=== PATIENT | female | born 1990 | race Caucasian/White ===

== ENCOUNTER 2017-06-29 18:04 | Emergency (ER) | payer SELFPAY ==
[~2017-06-29] VITALS: Ht 157.5 cm; Wt 52.2 kg
[2017-06-29 18:19] VITALS: BP 142/92; PULSE 117; RESP 22; TEMP 99.1; O2SAT 100
[2017-06-29 18:22] VITALS: BP 142/92; PULSE 117; RESP 22; TEMP 99.1; O2SAT 100
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
[2017-06-29 18:59] LABS: AUTOMATED NEUTROPHIL # 6.8 TH/MM3 (1.8-7.7); BASOPHIL # 0.1 TH/MM3 (0-0.2); BASOPHIL % 0.7 % (0.0-2.0); EOSINOPHIL % 0.4 % (0.0-4.0); HEMATOCRIT 36.9 % (35.0-46.0); HEMO FLAGS DIFF FINAL; LYMPH % 20.6 % (9.0-44.0); MEAN CELL VOLUME 83.4 FL (80.0-100.0); MEAN CORPUSCULAR HEMOGLOBIN 28.6 PG (27.0-34.0); MEAN CORPUSCULAR HGB CONC 34.3 % (32.0-36.0); MONO % 7.8 % (0.0-8.0); NEUT % 70.5 % (16.0-70.0); PLATELET COUNT 267 TH/MM3 (150-450); RED BLOOD COUNT 4.43 MIL/MM3 (4.00-5.30); RED CELL DISTRIBUTION WIDTH 13.5 % (11.6-17.2); WHITE BLOOD COUNT 9.6 TH/MM3 (4.0-11.0)
[2017-06-29] MEDS ORDERED: HALOPERIDOL LACTATE 5 MG/ML AMP IM ONE (19:00)
[2017-06-29] MEDS ORDERED: LORazepam 2 MG/ML VIAL IV PUSH ONE (19:00)
[2017-06-29 19:11] LABS: AMPHETAMINE, URINE POS (NEG); BARBITURATES, URINE NEG (NEG); COCAINE, URINE POS (NEG)
[2017-06-29 19:19] LABS: ALT (GPT) 552 U/L (10-53); ANION GAP 11 MEQ/L (5-15); AST (GOT) 364 U/L (15-37); BICARBONATE 21.9 MEQ/L (21.0-32.0); BLOOD UREA NITROGEN 11 MG/DL (7-18); CHLORIDE 108 MEQ/L (98-107); GLOMERULAR FILTRATION RATE 64 ML/MIN (>89); POTASSIUM 3.7 MEQ/L (3.5-5.1); SODIUM (NA) 141 MEQ/L (136-145)
[2017-06-29 19:22] LABS: ACETAMINOPHEN 6.5 MCG/ML (10.0-30.0); ALKALINE PHOSPHATASE 100 U/L (45-117); TOTAL BILIRUBIN ADULT 0.5 MG/DL (0.2-1.0)
[2017-06-29 22:07] VITALS: BP 105/61; PULSE 74; RESP 16; O2SAT 97
[2017-06-30 06:17] VITALS: BP 106/58; PULSE 89; RESP 16; O2SAT 97
[2017-06-30 09:59] VITALS: BP 113/60; PULSE 98; RESP 18
[2017-06-30 12:29] VITALS: BP 113/60; TEMP 97.9
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
== END 2017-06-30 12:40 | disposition home or self-care (01) ==
LOC: NEPD 18:04 → NEPJ 06-30 12:40
DX: R45.1 Restlessness and agitation (principal); F19.10 Other psychoactive substance abuse, uncomplicated; F31.9 Bipolar disorder, unspecified; Z88.0 Allergy status to penicillin
CPT/HCPCS: 80053; 80307; 85025; 96372; 96374; 99284; J1630; J2060

== ENCOUNTER 2017-09-11 01:29 | Inpatient (IN) | payer OTHER ==
[~2017-09-11] VITALS: Ht 170.2 cm; Wt 62.1 kg
[2017-09-11 01:42] VITALS: BP 136/103; PULSE 92; RESP 15; TEMP 98.9; O2SAT 98
[2017-09-11] MEDS ORDERED: SODIUM CHLOR 0.9% 1000 ML INJ 1,000 ML IV ONE (02:00)
--- NOTE | 2017-09-11 02:02 | PD ---
HPI Chief Complaint: Alcohol/Drug Intoxication Time Seen by Provider: 01:59 Travel History International Travel<30 days: No Contact w/Intl Traveler<30days: No Traveled to known affect area: No History of Present Illness HPI 26-year-old female presents to the emergency department in police custody for Posada act. Patient was found at a gas station and admitted to heroin use. Patient appeared agitated and unable to care for herself and was brought to the emergency room for evaluation. Patient is not a Morrison act. Patient does not want to harm herself or harm others. Patient has extensive medical illness issues. Patient states she's taken all her medications as prescribed on Saturday. Patient here is not homicidal or suicidal. [facility] Past Medical History Narrative Medical Bipolar disorder, eye surgery; tobacco use alcohol use substance use; nursing notes reviewed Bipolar Disorder: Yes Diminished Hearing: No Past Surgical History Eye Surgery: Yes Social History Alcohol Use: Yes Tobacco Use: Yes (1 PPD) Substance Use: Yes Allergies-Medications (Allergen,Severity, Reaction): Coded Allergies: penicillin G (Unverified Allergy, Unknown, 09/11/17) Reported Meds & Prescriptions Reported Meds & Active Scripts Active Reported Risperdal (Risperidone) 0.25 Mg Tab 0.25 Mg PO DAILY Latuda (Lurasidone) 80 Mg Tab 80 Mg PO DAILY Haloperidol 0.5 Mg Tab Unknown Dose PO BID Ativan (Lorazepam) 0.5 Mg Tab 0.5 Mg PO DAILY PRN Review of Systems Except as stated in HPI: all other systems reviewed are Neg General / Constitutional: No: Fever, Chills HENT: No: Congestion Cardiovascular: No: Chest Pain or Discomfort Respiratory: No: Shortness of Breath Gastrointestinal: No: Abdominal Pain Genitourinary: No: Flank Pain Musculoskeletal: No: Pain Skin: No Rash Neurologic: No: Weakness Psychiatric: Positive: Mood Disorder, Substance Abuse, No: Anxiety Hematologic/Lymphatic: No: Lymph Node Enlargement Physical Exam Narrative GENERAL: Well-developed well-nourished female in no acute distress no respiratory distress GCS 15 SKIN: Warm and dry. HEAD: Normocephalic. EYES: No scleral icterus. No injection or drainage. NECK: Supple, trachea midline. No JVD or lymphadenopathy. CARDIOVASCULAR: Regular rate and rhythm without murmurs, gallops, or rubs. RESPIRATORY: Breath sounds equal bilaterally. No accessory muscle use. GASTROINTESTINAL: Abdomen soft, non-tender, nondistended. MUSCULOSKELETAL: No cyanosis, or edema. BACK: Nontender without obvious deformity. No CVA tenderness. Data Data Last Documented VS Vital Signs Date Time Temp Pulse Resp B/P (MAP) Pulse Ox O2 Delivery O2 Flow Rate FiO2 09/11/17 16:02 98 18 140/68 (92) 97 Room Air 09/11/17 07:45 98.0 Orders Orders Complete Blood Count With Diff (09/11/17 01:59) Comprehensive Metabolic Panel (09/11/17 01:59) Ed Urine Pregnancytest Poc (09/11/17 01:59) Drug Screen, Random Urine (09/11/17 01:59) Alcohol (Ethanol) (09/11/17 01:59) Sodium Chlor 0.9% 1000 Ml Inj (Ns 1000 M (09/11/17 02:00) Psych Screen (09/11/17 04:29) Diet Regular Basic (09/11/17 Breakfast) Diet Regular Basic (09/11/17 Dinner) Haloperidol Inj (Haldol Inj) (09/11/17 16:15) Labs Laboratory Tests Test 09/11/17 02:05 09/11/17 03:40 White Blood Count 9.6 TH/MM3 Red Blood Count 4.48 MIL/MM3 Hemoglobin 12.7 GM/DL Hematocrit 38.2 % Mean Corpuscular Volume 85.2 FL Mean Corpuscular Hemoglobin 28.2 PG Mean Corpuscular Hemoglobin Concent 33.1 % Red Cell Distribution Width 15.2 % Platelet Count 277 TH/MM3 Mean Platelet Volume 8.9 FL Neutrophils (%) (Auto) 53.3 % Lymphocytes (%) (Auto) 35.5 % Monocytes (%) (Auto) 9.1 % Eosinophils (%) (Auto) 1.1 % Basophils (%) (Auto) 1.0 % Neutrophils # (Auto) 5.1 TH/MM3 Lymphocytes # (Auto) 3.4 TH/MM3 Monocytes # (Auto) 0.9 TH/MM3 Eosinophils # (Auto) 0.1 TH/MM3 Basophils # (Auto) 0.1 TH/MM3 CBC Comment DIFF FINAL Differential Comment Blood Urea Nitrogen 15 MG/DL Creatinine 0.99 MG/DL Random Glucose 82 MG/DL Total Protein 7.7 GM/DL Albumin 3.9 GM/DL Calcium Level 9.1 MG/DL Alkaline Phosphatase 55 U/L Aspartate Amino Transf (AST/SGOT) 87 U/L Alanine Aminotransferase (ALT/SGPT) 243 U/L Total Bilirubin 0.2 MG/DL Sodium Level 142 MEQ/L Potassium Level 4.1 MEQ/L Chloride Level 108 MEQ/L Carbon Dioxide Level 27.9 MEQ/L Anion Gap 6 MEQ/L Estimat Glomerular Filtration Rate 69 ML/MIN Ethyl Alcohol Level LESS THAN 3 MG/DL Urine Opiates Screen NEG Urine Barbiturates Screen NEG Urine Amphetamines Screen NEG Urine Benzodiazepines Screen NEG Urine Cocaine Screen NEG Urine Cannabinoids Screen POS MDM Medical Decision Making Medical Screen Exam Complete: Yes Emergency Medical Condition: Yes Medical Record Reviewed: Yes Interpretation(s) Serum alcohol: Less than 3, not elevated Urine drug screen positive for cannabinoids Vital Signs Date Time Temp Pulse Resp B/P (MAP) Pulse Ox O2 Delivery O2 Flow Rate FiO2 09/11/17 01:52 92 98 Room Air 09/11/17 01:42 98.9 92 15 136/103 (114) 98 CBC & BMP Diagram 09/11/17 02:05 Total Protein 7.7, Albumin 3.9, Calcium Level 9.1, Alkaline Phosphatase 55, Aspartate Amino Transf (AST/SGOT) 87 H, Alanine Aminotransferase (ALT/SGPT) 243 H, Total Bilirubin 0.2 Vital Signs Date Time Temp Pulse Resp B/P (MAP) Pulse Ox O2 Delivery O2 Flow Rate FiO2 09/11/17 01:52 92 98 Room Air 09/11/17 01:42 98.9 92 15 136/103 (114) 98 POC hcg: negative Differential Diagnosis Polysubstance ingestion, substance induced mood disorder, alcohol intoxication, medication noncompliance Narrative Course IV access obtained specimens collected and several resulting patient given liter normal saline Patient resting quietly Labs resulted and patient is stable for psych screen; patient is medically cleared per psych screener patient still too substance impaired for screening; will attempt to reassess at one hour at this point patient is sleeping off ingestant(s) UDS only positive for cannabinoids although patient admitted to reported taking heroin prior to onset of symptoms. No evidence of alcohol intoxication. Patient will be reassessed by psych screener and once ingestants cleared should be stable for discharge unless psych evaluation indicates otherwise. Patient is not a Morrison act. Patient is a [employer] act. Diagnosis Primary Impression: Substance induced mood disorder Additional Impression: Marijuana abuse Jayde Cedeño MD Sep 11, 2017 02:02
[2017-09-11] MEDS ORDERED: RISP.25 PO (02:03)
[2017-09-11] MEDS ORDERED: LORA-392 PO (02:03)
[2017-09-11] MEDS ORDERED: LURA80 PO (02:03)
[2017-09-11] MEDS ORDERED: HALO0.5T PO (02:03)
[2017-09-11 02:15] LABS: AUTOMATED NEUTROPHIL # 5.1 TH/MM3 (1.8-7.7); BASOPHIL # 0.1 TH/MM3 (0-0.2); EOSINOPHIL # 0.1 TH/MM3 (0-0.4); EOSINOPHIL % 1.1 % (0.0-4.0); HEMATOCRIT 38.2 % (35.0-46.0); HEMO FLAGS DIFF FINAL; LYMPH % 35.5 % (9.0-44.0); LYMPHOCYTE # 3.4 TH/MM3 (1.0-4.8); MEAN CELL VOLUME 85.2 FL (80.0-100.0); MEAN CORPUSCULAR HEMOGLOBIN 28.2 PG (27.0-34.0); MEAN CORPUSCULAR HGB CONC 33.1 % (32.0-36.0); MONO % 9.1 % (0.0-8.0); NEUT % 53.3 % (16.0-70.0); PLATELET COUNT 277 TH/MM3 (150-450); RED BLOOD COUNT 4.48 MIL/MM3 (4.00-5.30); RED CELL DISTRIBUTION WIDTH 15.2 % (11.6-17.2); WHITE BLOOD COUNT 9.6 TH/MM3 (4.0-11.0)
[2017-09-11 02:45] LABS: ALT (GPT) 243 U/L (10-53); ANION GAP 6 MEQ/L (5-15); AST (GOT) 87 U/L (15-37); BICARBONATE 27.9 MEQ/L (21.0-32.0); BLOOD UREA NITROGEN 15 MG/DL (7-18); CHLORIDE 108 MEQ/L (98-107); GLOMERULAR FILTRATION RATE 69 ML/MIN (>89); POTASSIUM 4.1 MEQ/L (3.5-5.1); SODIUM (NA) 142 MEQ/L (136-145)
[2017-09-11 02:47] LABS: ALCOHOL LESS THAN 3 MG/DL (0-5); ALKALINE PHOSPHATASE 55 U/L (45-117); TOTAL BILIRUBIN ADULT 0.2 MG/DL (0.2-1.0)
[2017-09-11 07:45] VITALS: BP 102/55; PULSE 81; RESP 14; TEMP 98; O2SAT 99
[2017-09-11 12:41] VITALS: BP 113/59; PULSE 78; RESP 17; O2SAT 100
--- NOTE | 2017-09-11 15:23 | PD ---
History of Present Illness Chief Complaint: Alcohol/Drug Intoxication Time Seen by Provider: 15:00 Travel History International Travel<30 Days: No Contact w/Intl Traveler<30days: No Known affected area: No Legal Status Legal Status: Morrison Act Morrison Act Comment: [place]ADA ACT FROM [place] [employer] History of Present Illness: Patient apparently brought in under a Posada act or Morrison act due to erratic behavior. Patient admits to heroin use. She is positive for cannabinoids but is acting in a very bizarre and likely psychotic fashion. There is some concern the patient's marijuana may have been laced with other drugs or she may have taken other drugs that are not found on our toxicology screen. In any event, the patient is being moved to [facility] for further evaluation and observation. Patient denies suicidal or homicidal ideation, plan or intent. However, she may not be safe for discharge due to her intoxication at this time. [facility] Past Medical History Medical History: Unable to Obtain Bipolar Disorder: Yes Diminished Hearing: No ?: Not Past Surgical History Surgical History: Unable to Obtain Eye Surgery: Yes Psychiatric History Psychiatric History Hx Psychiatric Treatment: REPORTS THAT SHE TAKES HALDOL, ATIVAN AND RISPERIDAL. PER MEDICAL RECORD. POSSIBLE BIPOLAR. QUESTIONABLE TREATMENT AT [facility] History of Inpatient Treatment: No Guns or firearms in home: No Social History Hx Alcohol Use: Yes Hx Tobacco Use: Yes (1 PPD) Hx Substance Use: Yes Substance Use Type: Marijuana, Amphetamines-Stimulants, Heroin, Cocaine Other Substances Used: REPORTS DAILY HEROIN. DRUG SCREEN IS NEGATIVE FOR OPIATES Hx of Substance Use Treatment: Yes Allergies-Medications (Allergen,Severity, Reaction): Coded Allergies: penicillin G (Unverified Allergy, Unknown, 09/11/17) Reported Meds & Prescriptions Reported Meds & Active Scripts Active Reported Risperdal (Risperidone) 0.25 Mg Tab 0.25 Mg PO DAILY Latuda (Lurasidone) 80 Mg Tab 80 Mg PO DAILY Haloperidol 0.5 Mg Tab Unknown Dose PO BID Ativan (Lorazepam) 0.5 Mg Tab 0.5 Mg PO DAILY PRN Review of Systems Except as stated in HPI: all other systems reviewed are Neg Mental Status Examination Appearance: Appropriate Consciousness: Alert Orientation: x4 Motor Activity: Normal gait Speech: Unremarkable Language: Adequate Fund of Knowledge: Adequate Attention and Concentration: Easily Distracted Memory: Impaired Mood: Manic Affect: Labile Thought Process & Associations: Loose associations Thought Content: Bizarre thinking Hallucination Type: Other Delusion Type: Bizarre Suicidal Ideation: No Suicidal Plan: No Suicidal Intention: No Homicidal Ideation: No Homicidal Plan: No Homicidal Intention: No Insight: Adequate Judgment: Adequate [facility] Medical Decision Making Medical Record Reviewed: Yes Assessment/Plan Patient interviewed at bedside. Medical record reviewed. Case discussed with multiple nurses including Jerad Snyder and Eliseo. Patient is felt to still show evidence of psychotic thinking and is therefore being transferred to [facility] for further observation and evaluation. At this time, it is difficult to determine whether the patient is intoxicated with some type of substance or suffering from an exacerbation of some mental illness. Orders Orders Complete Blood Count With Diff (09/11/17 01:59) Comprehensive Metabolic Panel (09/11/17 01:59) Ed Urine Pregnancytest Poc (09/11/17 01:59) Drug Screen, Random Urine (09/11/17 01:59) Alcohol (Ethanol) (09/11/17 01:59) Sodium Chlor 0.9% 1000 Ml Inj (Ns 1000 M (09/11/17 02:00) Psych Screen (09/11/17 04:29) Diet Regular Basic (09/11/17 Breakfast) Ed Discharge Order (09/11/17 15:03) Results Vital Signs Date Time Temp Pulse Resp B/P (MAP) Pulse Ox O2 Delivery O2 Flow Rate FiO2 09/11/17 12:41 78 17 113/59 (77) 100 Room Air 09/11/17 07:45 98.0 81 14 102/55 (71) 99 Room Air 09/11/17 01:52 92 98 Room Air 09/11/17 01:42 98.9 92 15 136/103 (114) 98 Laboratory Tests Test 09/11/17 02:05 09/11/17 03:40 White Blood Count 9.6 Red Blood Count 4.48 Hemoglobin 12.7 Hematocrit 38.2 Mean Corpuscular Volume 85.2 Mean Corpuscular Hemoglobin 28.2 Mean Corpuscular Hemoglobin Concent 33.1 Red Cell Distribution Width 15.2 Platelet Count 277 Mean Platelet Volume 8.9 Neutrophils (%) (Auto) 53.3 Lymphocytes (%) (Auto) 35.5 Monocytes (%) (Auto) 9.1 Eosinophils (%) (Auto) 1.1 Basophils (%) (Auto) 1.0 Neutrophils # (Auto) 5.1 Lymphocytes # (Auto) 3.4 Monocytes # (Auto) 0.9 Eosinophils # (Auto) 0.1 Basophils # (Auto) 0.1 CBC Comment DIFF FINAL Differential Comment Blood Urea Nitrogen 15 Creatinine 0.99 Random Glucose 82 Total Protein 7.7 Albumin 3.9 Calcium Level 9.1 Alkaline Phosphatase 55 Aspartate Amino Transf (AST/SGOT) 87 Alanine Aminotransferase (ALT/SGPT) 243 Total Bilirubin 0.2 Sodium Level 142 Potassium Level 4.1 Chloride Level 108 Carbon Dioxide Level 27.9 Anion Gap 6 Estimat Glomerular Filtration Rate 69 Ethyl Alcohol Level LESS THAN 3 Urine Opiates Screen NEG Urine Barbiturates Screen NEG Urine Amphetamines Screen NEG Urine Benzodiazepines Screen NEG Urine Cocaine Screen NEG Urine Cannabinoids Screen POS Diagnosis Primary Impression: Brief psychotic disorder Cezar Mendez MD Sep 11, 2017 15:23
[2017-09-11 16:02] VITALS: BP 140/68; PULSE 98; RESP 18; O2SAT 97
[2017-09-11] MEDS ORDERED: HALOPERIDOL LACTATE 5 MG/ML AMP IM ONE (16:15)
[2017-09-11 21:57] VITALS: BP 104/56; PULSE 89; RESP 18; O2SAT 100
[2017-09-12 02:00] VITALS: BP 113/56; PULSE 78; RESP 18; TEMP 96.3; O2SAT 99
[2017-09-12 06:13] VITALS: RESP 16
[2017-09-12] MEDS ORDERED: MAGNESIUM HYDROXIDE SUSP 30 ML CUP PO PRN (10:45)
[2017-09-12] MEDS ORDERED: ALUMINUM/MAGNESIUM/SIMETH 30 ML CUP PO PRN (10:45)
[2017-09-12] MEDS ORDERED: ACETAMINOPHEN 325 MG TAB PO PRN (10:45)
--- NOTE | 2017-09-12 10:58 | HHI.HP ---
Provisional Diagnosis Admission Date [place] I. Brief psychotic disorder Certification of Person's Competence To Provide Express and Informed Consent I have personally examined Johana Clarke , a person being served at [facility] on, Sep 12, 2017 10:41. Express and informed consent means consent voluntarily given in writing, by a competent person, after sufficient explanation and disclosure of the subject matter involved to enable the person to make a knowing and willful decision without any element of force, fraud, deceit, duress, or other form of constraint or coercion. This person is 18 years of age or older, is not now known to be incompetent to consent to treatment with a guardian advocate, and does not have a health care surrogate or proxy currently making medical treatment decisions. I have found this person to be one of the following: [x] Competent to provide express and informed consent, as defined above, for voluntary admission to this facility and is competent to provide express and informed consent for treatment. He/she has the consistent capacity to make well reasoned, willful, and knowing decisions concerning his or her medical or mental health treatment. The person fully and consistently understands the purpose of the admission for examination/placement and is fully capable of personally exercising all rights assured [place] Incompetent to provide express and informed consent to voluntary admission, and this is incompetent to provide express and informed consent to treatment. The person must be transferred to involuntary status and a petition for a guardian advocate filed with the Circuit Court. [] Refusing to provide express and informed consent to voluntary admission but is competent to provide express and informed consent for treatment. The person must be discharged or transferred to involuntary status. Form shall be completed within 24 hours of a person's arrival at the receiving facility and filed in the clinical record of each person: 1. Admitted on a voluntary basis 2. Permitted to provide express and informed consent to his/her own treatment 3. Allowed to transfer from involuntary to voluntary status 4. Prior to permitting a person to consent to his or her own treatment after having been previously found incompetent to consent to treatment. History of Present Illness Capacity: Has Capacity HPI This is a 26-year-old female brought in under a [place] act for erratic behavior and reports of heroine use. Apparently the patient was seen by law enforcement at a local convenience store. The patient had been walking around the convenience store behaving in an irrational fashion. She was yelling, cursing and shouting nonsensical remarks. The officer approached the patient with the patient would not cooperate and continued to demonstrate emotional lability. The patient told the officer she had used heroine. She also advised the officer that she had been on several antipsychotic medicines, including Risperdal, Haldol and Latuda. Upon interview, the patient continues to demonstrate psychotic thinking, loose associations, nonsensical remarks, inappropriate cursing, inappropriately yelling, impulsive and intrusive behavior, etc. She is now stating she smoked flocca. She is felt to be psychotic and an unreliable poor historian. However , after 24+ hours of observation, the patient has not cleared and she may in fact have an underlying mental illness such as bipolar disorder, schizoaffective disorder, etc. Patient has no money, no place to live, no cognitive ability to care for herself. She is unable to provide accurate information regarding assistance from family or friends. She has self reportedly been "trespassed" from her father's house. She made the remark "whatever it takes to earn your business, Deondre Waldemar Canales." She also stated she works at [employer] Review of Systems Except as stated in HPI: all other systems reviewed are Neg Past Psych History Psychological trauma history Unknown psychological trauma. Patient has reportedly been treated by [facility]. Violence risk - others (6 mos) Minimal to moderate. Violence risk - self (6 mos) High. Patient is impulsive and would likely walk into traffic. Substance Abuse History Drugs/Alcohol past 12 months Patient admits to abusing multiple substances including heroin, cocaine, etc. Again, substance abuse history is unreliable. Past Family Social History Coded Allergies: penicillin G (Unverified Allergy, Unknown, 09/11/17) Reported Medications Risperidone (Risperdal) 0.25 Mg Tab, 0.25 MG PO DAILY, #30 TAB 0 Refills 09/11/17 Lurasidone (Latuda) 80 Mg Tab, 80 MG PO DAILY, #30 TAB 0 Refills 09/11/17 Haloperidol (Haloperidol) 0.5 Mg Tab, PO BID, TAB 0 Refills 09/11/17 Lorazepam (Ativan) 0.5 Mg Tab, 0.5 MG PO DAILY Y for ANXIETY AND/OR AGITATION, TAB 0 Refills 09/11/17 Family Psych History Unknown Social History Patient is unemployed. Family history is unknown. Social history is unknown. As stated above, patient admits to taking multiple illicit substances. Toxicology screen does not support this, however. Toxicology screen is negative. Patient does indicate to this physician that she has a child. She changes her story repeatedly regarding work, family, etc. Patient's Strengths (min. 2) Resilient and has access to healthcare. Physical Exam GENERAL: SKIN: Warm and dry. HEAD: Normocephalic. EYES: No scleral icterus. No injection or drainage. NECK: Supple, trachea midline. No JVD or lymphadenopathy. CARDIOVASCULAR: Regular rate and rhythm without murmurs, gallops, or rubs. RESPIRATORY: Breath sounds equal bilaterally. No accessory muscle use. GASTROINTESTINAL: Abdomen soft, non-tender, nondistended. MUSCULOSKELETAL: No cyanosis, or edema. BACK: Nontender without obvious deformity. No CVA tenderness. Vital Signs Vital Signs Date Time Temp Pulse Resp B/P (MAP) Pulse Ox O2 Delivery O2 Flow Rate FiO2 09/12/17 06:13 16 09/12/17 02:00 96.3 78 99 Room Air Mental Status Examination Appearance: Disheveled Consciousness: Alert Orientation: Person, Place Motor Activity: Normal gait Speech: Rapid Language: Adequate Fund of Knowledge: Adequate Attention and Concentration: Easily Distracted Memory: Impaired Mood: Manic Affect: Labile Thought Process & Associations: Loose associations Thought Content: Bizarre thinking Hallucination Type: Other Delusion Type: Bizarre Suicidal Ideation: No Suicidal Plan: No Suicidal Intention: No Homicidal Ideation: No Homicidal Plan: No Homicidal Intention: No Insight: Adequate Judgment: Adequate Assessment & Plan Problem List: (1) Brief psychotic disorder ICD Codes: F23 - Brief psychotic disorder Status: Acute Assessment & Plan Estimated LOS: days 26-year-old female presenting under a Posada act for psychotic behavior and history of substance abuse. Patient's toxicology screen is negative and the patient has been observed over 24 hours without significant improvement. Furthermore, patient is providing information indicating she has been treated with multiple antipsychotics in the past and that she has been treated at [facility]. Finally, patient is erratic, impulsive, intrusive and unable to care for herself. She is felt to be a danger to herself as well. This physician has ordered a CBC and comprehensive metabolic panel to determine whether some infectious process or metabolic process is causing or contributing to her psychosis. Additionally, we will obtain thyroid stimulating hormone levels, vitamin B-12 level and vitamin D level to determine if deficiencies in these areas are causing or contributing to her psychosis. This physician has also ordered an EKG to determine the patient's cardiac conduction status prior to instituting psychotropic medication changes. This physician has discussed the patient's recent behavior with multiple nurses. Finally, case management is being involved to assist with further information gathering and disposition planning. Cezar Mendez MD Sep 12, 2017 10:58
[2017-09-12 13:22] VITALS: BP 145/68; PULSE 96; RESP 20; TEMP 97.3; O2SAT 98
[2017-09-13 06:23] VITALS: BP 134/79; PULSE 100; RESP 18; TEMP 98.4
[2017-09-13] MEDS: LORazepam 2 MG/ML VIAL IM PRN (06:53)
--- NOTE | 2017-09-13 08:53 | EKG ---
Date Performed: 09/13/2017 Time Performed: 07:55:28 PTAGE: 26 years EKG: Sinus rhythm WITH MARKED SINUS ARRHYTHMIA BORDERLINE ECG NO PREVIOUS TRACING DOCTOR: Christian Zarate Interpretating Date/Time 09/13/2017 08:52:35
[2017-09-13] MEDS: ARIPiprazole 5 MG TAB PO SCH (11:43)
[2017-09-13 12:29] LABS: AUTOMATED NEUTROPHIL # 3.4 TH/MM3 (1.8-7.7); BASOPHIL # 0.1 TH/MM3 (0-0.2); BASOPHIL % 1.1 % (0.0-2.0); EOSINOPHIL # 0.1 TH/MM3 (0-0.4); EOSINOPHIL % 1.6 % (0.0-4.0); HEMATOCRIT 40.8 % (35.0-46.0); HEMO FLAGS DIFF FINAL; LYMPH % 30.5 % (9.0-44.0); LYMPHOCYTE # 1.7 TH/MM3 (1.0-4.8); MEAN CELL VOLUME 85.8 FL (80.0-100.0); MEAN CORPUSCULAR HEMOGLOBIN 28.8 PG (27.0-34.0); MEAN CORPUSCULAR HGB CONC 33.6 % (32.0-36.0); MONO % 6.6 % (0.0-8.0); NEUT % 60.2 % (16.0-70.0); PLATELET COUNT 279 TH/MM3 (150-450); RED BLOOD COUNT 4.76 MIL/MM3 (4.00-5.30); RED CELL DISTRIBUTION WIDTH 15.3 % (11.6-17.2); WHITE BLOOD COUNT 5.7 TH/MM3 (4.0-11.0)
[2017-09-13 12:52] LABS: ALT (GPT) 174 U/L (10-53); ANION GAP 6 MEQ/L (5-15); AST (GOT) 47 U/L (15-37); BLOOD UREA NITROGEN 20 MG/DL (7-18); CHLORIDE 102 MEQ/L (98-107); GLOMERULAR FILTRATION RATE 74 ML/MIN (>89); POTASSIUM 4.1 MEQ/L (3.5-5.1); SODIUM (NA) 136 MEQ/L (136-145)
--- NOTE | 2017-09-13 13:18 | HHI.PYPN ---
Subjective Remarks Patient is a 26 y/o woman, single, employed, living with her father, denies past psychiatric history but as per chart bipolar disorder, polysubstance use disorder, who was brought in by police after being noted being agitated and unable to care for herself. Patient seen for follow-up, chart reviewed. Discussion with nursing staff reported that patient was noted to be inappropriate, loud, intrusive, appearing intoxicated yesterday but today quieter. Patient was found lying on hospital bed calm and cooperative with interview. Patient admitted to [facility] stating that she forgot events surrounding her being brought to the hospital. She states that she had she had gone to a store to buy a drink and was noted to be intoxicated which police were called. She states recalling being at the store and "going crazy". She reports having used heroin. Currently she states feeling "wonderful" with her mood usually being good, denies any problems with sleep lately, appetite, or energy, reports some decreased concentration, but states feeling depressed for the past couple of months. She denies any SI, feeling helpless or hopeless. She states admits to having episodes of decreased need to sleep with and without substance use. Collateral contact: father [phone] Review of Systems Except as stated in HPI: all other systems reviewed are Neg Mental Status Examination Appearance: Disheveled Consciousness: Alert Orientation: Person, Place Motor Activity: Normal gait Speech: Slow Language: Adequate Fund of Knowledge: Adequate Attention and Concentration: Inadequate Memory: Impaired Mood: Other ("wonderful") Affect: Other (restricted) Thought Process & Associations: Linear Thought Content: Appropriate, Other Hallucination Type: Auditory, Other Delusion Type: None Suicidal Ideation: No Suicidal Plan: No Suicidal Intention: No Homicidal Ideation: No Homicidal Plan: No Homicidal Intention: No Insight: Fair Judgment: Poor Results Labs Test 09/13/17 12:10 White Blood Count 5.7 TH/MM3 Red Blood Count 4.76 MIL/MM3 Hemoglobin 13.7 GM/DL Hematocrit 40.8 % Mean Corpuscular Volume 85.8 FL Mean Corpuscular Hemoglobin 28.8 PG Mean Corpuscular Hemoglobin Concent 33.6 % Red Cell Distribution Width 15.3 % Platelet Count 279 TH/MM3 Mean Platelet Volume 9.0 FL Neutrophils (%) (Auto) 60.2 % Lymphocytes (%) (Auto) 30.5 % Monocytes (%) (Auto) 6.6 % Eosinophils (%) (Auto) 1.6 % Basophils (%) (Auto) 1.1 % Neutrophils # (Auto) 3.4 TH/MM3 Lymphocytes # (Auto) 1.7 TH/MM3 Monocytes # (Auto) 0.4 TH/MM3 Eosinophils # (Auto) 0.1 TH/MM3 Basophils # (Auto) 0.1 TH/MM3 CBC Comment DIFF FINAL Differential Comment Blood Urea Nitrogen 20 MG/DL Creatinine 0.93 MG/DL Random Glucose 88 MG/DL Albumin 3.7 GM/DL Calcium Level 8.9 MG/DL Aspartate Amino Transf (AST/SGOT) 47 U/L Alanine Aminotransferase (ALT/SGPT) 174 U/L Sodium Level 136 MEQ/L Potassium Level 4.1 MEQ/L Chloride Level 102 MEQ/L Carbon Dioxide Level 28.0 MEQ/L Anion Gap 6 MEQ/L Estimat Glomerular Filtration Rate 74 ML/MIN Triglycerides Level 267 MG/DL Cholesterol Level 164 MG/DL Vitals/IOs Vital Signs Date Time Temp Pulse Resp B/P (MAP) Pulse Ox O2 Delivery O2 Flow Rate FiO2 09/13/17 06:23 98.4 100 18 134/79 (97) 09/12/17 13:22 98 09/12/17 02:00 Room Air Assessment & Plan Problem List: (1) Brief psychotic disorder ICD Codes: F23 - Brief psychotic disorder Status: Acute Assessment & Plan Patient appears to begin to clear from recent substance intoxication. Will start abilify 5mg PO daily. Patient agrees to rehabilitation program upon discharge. Discharge planning in progress. Justification for Cont. Inpt. Patient seen for follow-up, chart reviewed. Discharge Planning Patient to return back to residence after discharge. To be referred to substance rehabilitation program. Osito Ram MD Sep 13, 2017 13:18
[2017-09-13 13:27] LABS: ALKALINE PHOSPHATASE 61 U/L (45-117); HDL CHOLESTEROL 62.9 MG/DL (40.0-60.0); LDL CHOLESTEROL 48 MG/DL (0-99); TOTAL BILIRUBIN ADULT 0.3 MG/DL (0.2-1.0)
[2017-09-13 16:41] LABS: HEMOGLOBIN A1a 0.9 %; HEMOGLOBIN A1b 1.3 %; HEMOGLOBIN Ao 86.9 %; HEMOGLOBIN P3 3.3 %
[2017-09-13 18:18] VITALS: BP 116/69; PULSE 104; RESP 16; TEMP 99.1; O2SAT 96
[2017-09-13] MEDS: diphenhydrAMINE HCL 25 MG CAP PO PRN (20:33)
[2017-09-14 05:40] VITALS: BP 95/50; PULSE 79; RESP 18; TEMP 97.8; O2SAT 97
[2017-09-14] MEDS: diphenhydrAMINE HCL 25 MG CAP PO PRN (09:06)
[2017-09-14] MEDS: ARIPiprazole 5 MG TAB PO SCH (09:06)
--- NOTE | 2017-09-14 13:44 | HHI.PYPN ---
Subjective Remarks Patient was seen and case discussed with nursing. Patient is acutely psychotic. She is hyperactive, disheveled with a flight of ideas and irritable affect. She is sexually preoccupied and very paranoid, saying she fears for her life. Focused on discharge, patient got in the floor and started begging me on her knees. Medication does not appear to be helping and is at a low dose. We discussed Risperdal and patient has no allergies. LFTs are elevated and EKG is borderline and medicine will be consulted Mental Status Examination Appearance: Disheveled Consciousness: Alert Orientation: Person, Place Motor Activity: Normal gait Speech: Pressured, Rapid Language: Adequate Fund of Knowledge: Adequate Attention and Concentration: Easily Distracted Memory: Impaired Mood: Manic Affect: Labile Thought Process & Associations: Tangential Thought Content: Bizarre thinking, Racing thoughts, Preoccupations, Other Hallucination Type: None, Other Delusion Type: Paranoid Suicidal Ideation: No Suicidal Plan: No Suicidal Intention: No Homicidal Ideation: No Homicidal Plan: No Homicidal Intention: No Insight: Poor Judgment: Poor Results Vitals/IOs Vital Signs Date Time Temp Pulse Resp B/P (MAP) Pulse Ox O2 Delivery O2 Flow Rate FiO2 09/14/17 05:40 97.8 79 18 95/50 (65) 97 09/12/17 02:00 Room Air Assessment & Plan Problem List: (1) Brief psychotic disorder ICD Codes: F23 - Brief psychotic disorder Status: Acute Assessment & Plan Patient will be transferred to the 2700 unit, petition started, medicine consulted, cancel Abilify, add Risperdal 2 mg by mouth twice a day. Consider mood stabilizer however LFTs are elevated Justification for Cont. Inpt. Patient would decompensate in a less restrictive setting Bryan Naranjo DO Sep 14, 2017 13:44
[2017-09-14] MEDS: risperiDONE 1 MG TAB PO SCH ×2 (13:45→20:37)
[2017-09-14] MEDS: LORazepam 2 MG/ML VIAL IM PRN (14:15)
--- NOTE | 2017-09-14 14:43 | PD.CONS ---
HPI Service [facility] Hospitalists Consult Requested By Dr. Naranjo Reason for Consult Elevated LFTs Primary Care Physician Unknown Diagnoses: (1) Elevated LFTs (2) Brief psychotic disorder (3) Marijuana abuse History of Present Illness 26 Y/O admitted to the psychiatric unit for psychosis. The patient was brought in by police for erratic behavior. Hospitalist service consulted for elevated LFTs and borderline EKG. The patient is not a reliable historian. She reports the police brought her in because she got a slurpee and could not pay for it. She is very disorganized and apparently manic. She admits to multiple drug of abuse. However her tox screen is only positive for Marijuana. She is not a reliable historian. She denies any medical history. Review of Systems ROS Limitations: Clinical Condition, Poor Historian ROS would not be reliable as patient is psychotic. Past Family Social History Allergies: Coded Allergies: penicillin G (Unverified Allergy, Unknown, 09/11/17) Past Medical History Bipolar disorder. Past Surgical History Right eye surgery Reported Medications Reported Meds & Active Scripts Active Reported Risperdal (Risperidone) 0.25 Mg Tab 0.25 Mg PO DAILY Latuda (Lurasidone) 80 Mg Tab 80 Mg PO DAILY Haloperidol 0.5 Mg Tab Unknown Dose PO BID Ativan (Lorazepam) 0.5 Mg Tab 0.5 Mg PO DAILY PRN Family History Unknown. Social History Patient reports smoking 1 PPD. She reports using Flacca and snorting heroin. She denies IVDU. No alcohol. Physical Exam Vital Signs Vital Signs Date Time Temp Pulse Resp B/P (MAP) Pulse Ox O2 Delivery O2 Flow Rate FiO2 09/14/17 05:40 97.8 79 18 95/50 (65) 97 09/13/17 18:18 99.1 104 16 116/69 (85) 96 Physical Exam GENERAL: Manic, pacing. \ EYES: Pupils equal round and reactive. Extraocular motions intact. No scleral icterus. No injection or drainage. ENT: Nose without bleeding, purulent drainage or septal hematoma. Throat without erythema, tonsillar hypertrophy or exudate. Uvula midline. Airway patent. NECK: Trachea midline. No JVD or lymphadenopathy. Supple, nontender, no meningeal signs. CARDIOVASCULAR: Regular rate and rhythm without murmurs, gallops, or rubs. RESPIRATORY: Clear to auscultation. Breath sounds equal bilaterally. No wheezes , rales, or rhonchi. GASTROINTESTINAL: Abdomen soft, non-tender, nondistended. No hepato-splenomegaly , or palpable masses. No guarding. MUSCULOSKELETAL: Extremities without clubbing, cyanosis, or edema. NEUROLOGICAL: Awake and alert. Cranial nerves II through XII intact. Motor and sensory grossly within normal limits. Five out of 5 muscle strength in all muscle groups. Pressured speech. Result Diagram: 09/13/17 1210 09/13/17 121 Assessment and Plan Problem List: (1) Brief psychotic disorder ICD Code: F23 - Brief psychotic disorder Status: Acute (2) Elevated LFTs ICD Code: R79.89 - Other specified abnormal findings of blood chemistry Assessment and Plan 26 Y/O with Psychotic disorder: - Management per psychiatry Elevated LFTs: - It is unclear which drugs or medications the patient has been taking. LFT's trending down which is a good sign - Will obtain hepatitis profile - Trend levels. Consider Liver US if does not improve as expected Borderline EKG: - Sinus arrhythmia. asymptomatic. follow clinically. No further workup indicated at this point. Will follow up on labs. Hebert Kendall MD Sep 14, 2017 14:43
--- NOTE | 2017-09-14 16:17 | EKG ---
Date Performed: 09/14/2017 Time Performed: 15:20:06 PTAGE: 26 years EKG: Sinus rhythm WITH MARKED SINUS ARRHYTHMIA BORDERLINE ECG No significant change from prior electrocardiogram. PREVIOUS TRACING : 09/13/2017 07.55 DOCTOR: Hipolito Sparks Interpretating Date/Time 09/14/2017 16:15:06
[2017-09-14 17:49] VITALS: BP 124/73; PULSE 109; RESP 18; TEMP 97.3; O2SAT 100
[2017-09-14] MEDS: diphenhydrAMINE HCL 50 MG CAP PO PRN (20:38)
[2017-09-15 05:46] VITALS: BP 109/68; PULSE 110; RESP 18; TEMP 97.7; O2SAT 98
[2017-09-15] MEDS: risperiDONE 1 MG TAB PO SCH ×2 (08:54→20:15)
[2017-09-15 10:22] LABS: INDIRECT BILIRUBIN 0.1 MG/DL (0.0-0.8); TOTAL BILIRUBIN ADULT 0.2 MG/DL (0.2-1.0)
[2017-09-15] MEDS: LORazepam 1 MG TAB PO PRN ×2 (10:39→16:17)
--- NOTE | 2017-09-15 14:39 | PD.PSY.CON ---
Provisional Diagnosis Admission Date Sep 12, 2017 at 10:37 [place] I. Brief psychotic disorder History of Present Illness Service Psychiatry Consult Requested By Reason for Consult Second opinion Primary Care Physician Unknown HPI This is a 26-year-old female brought in under a Posada act for erratic behavior and reports of heroine use. Apparently the patient was seen by law enforcement at a local convenience store. The patient had been walking around the convenience store behaving in an irrational fashion. She was yelling, cursing and shouting nonsensical remarks. The officer approached the patient with the patient would not cooperate and continued to demonstrate emotional lability. The patient told the officer she had used heroine. She also advised the officer that she had been on several antipsychotic medicines, including Risperdal, Haldol and Latuda.Upon interview, the patient continues to demonstrate psychotic thinking, loose associations, nonsensical remarks, inappropriate cursing, inappropriately yelling, impulsive and intrusive behavior , etc. She is now stating she smoked flocca. She is felt to be psychotic and an unreliable poor historian. However, after 24+ hours of observation, the patient has not cleared and she may in fact have an underlying mental illness such as bipolar disorder, schizoaffective disorder, etc. Patient has no money, no place to live, no cognitive ability to care for herself. She is unable to provide accurate information regarding assistance from family or friends. She has self reportedly been "trespassed" from her father's house. She made the remark "whatever it takes to earn your business, Deondre Waldemar Canales." She also stated she works at [employer] Patient was seen today for evaluation of second opinion. Patient is acutely psychotic, very disorganized, demanding, disruptive and restless. She is disheveled with a flight of ideas and irritable affect. She is sexually preoccupied and very paranoid, saying she fears for her life. Focused on discharge, stating that the psychiatrist who is treating her doesn't know how to treat real patients. As per nurses, very agitated and difficult to redirect. Review of Systems Except as stated in HPI: all other systems reviewed are Neg Past Family Social History Coded Allergies: penicillin G (Unverified Allergy, Unknown, 09/11/17) Reported Medications Risperidone (Risperdal) 0.25 Mg Tab, 0.25 MG PO DAILY, #30 TAB 0 Refills 09/11/17 Lurasidone (Latuda) 80 Mg Tab, 80 MG PO DAILY, #30 TAB 0 Refills 09/11/17 Haloperidol (Haloperidol) 0.5 Mg Tab, PO BID, TAB 0 Refills 09/11/17 Lorazepam (Ativan) 0.5 Mg Tab, 0.5 MG PO DAILY Y for ANXIETY AND/OR AGITATION, TAB 0 Refills 09/11/17 Current Medications Medications (Trade) Dose Ordered Sig/Ankita Route Start Time Stop Time Status Last Admin (Ativan) 1 mg Q6H PRN PO 09/12/17 10:45 09/15/17 10:39 (Ativan Inj) 1 mg Q6H PRN IM 09/12/17 10:45 09/14/17 14:15 (Tylenol) 650 mg Q4H PRN PO 09/12/17 10:45 (Milk Of Magnesia Liq) 30 ml DAILY PRN PO 09/12/17 10:45 (Mag-Al Plus Susp Liq) 30 ml Q6H PRN PO 09/12/17 10:45 (Benadryl) 25 mg Q6H PRN PO 09/13/17 09:30 09/14/17 09:06 (Benadryl) 50 mg HS PRN PO 09/13/17 09:30 09/14/17 20:38 (risperDAL) 2 mg Q12HR PO 09/14/17 13:45 09/15/17 08:54 Patient's Strengths (min. 2) Resilient and has access to healthcare. Physical Exam Vital Signs Vital Signs Date Time Temp Pulse Resp B/P (MAP) Pulse Ox O2 Delivery O2 Flow Rate FiO2 09/15/17 05:46 97.7 110 18 109/68 (82) 98 09/12/17 02:00 Room Air Lab Results Test 09/15/17 09:10 Total Bilirubin 0.2 MG/DL Direct Bilirubin 0.1 MG/DL Indirect Bilirubin 0.1 MG/DL Aspartate Amino Transf (AST/SGOT) 35 U/L Alanine Aminotransferase (ALT/SGPT) 123 U/L Alkaline Phosphatase 57 U/L Total Protein 7.6 GM/DL Albumin 3.7 GM/DL Mental Status Examination Appearance: Disheveled Consciousness: Alert Orientation: Person, Place Motor Activity: Normal gait Speech: Pressured, Rapid Language: Adequate Fund of Knowledge: Adequate Attention and Concentration: Easily Distracted Memory: Impaired Mood: Manic Affect: Labile Thought Process & Associations: Tangential Thought Content: Bizarre thinking, Racing thoughts, Preoccupations, Other Hallucination Type: None, Other Delusion Type: Paranoid Suicidal Ideation: No Suicidal Plan: No Suicidal Intention: No Homicidal Ideation: No Homicidal Plan: No Homicidal Intention: No Insight: Poor Judgment: Poor Assessment & Plan Problem List: (1) Brief psychotic disorder ICD Codes: F23 - Brief psychotic disorder Status: Acute Assessment & Plan: I have seen and examined this patient, reviewed the documentation, I agree and concur with Dr. Mendez and Dr. Naranjo assessments and plan. Assessment & Plan Estimated LOS: David Queen MD Sep 15, 2017 14:39
--- NOTE | 2017-09-15 15:58 | HHI.PYPN ---
Subjective Remarks Patient was seen and case discussed with nursing. Patient remains labile, elevated, bizarre. She is hyperactive and disorganized. Remains perseverant on discharge. Bizarre thought process concerning demanding shown. Patient says she needs to go home to her deaf dog, because he will bite somewhat he and taste blood and not like her anymore Mental Status Examination Appearance: Disheveled Consciousness: Alert Orientation: Person, Place Motor Activity: Normal gait Speech: Pressured, Rapid Language: Adequate Fund of Knowledge: Adequate Attention and Concentration: Easily Distracted Memory: Impaired Mood: Manic Affect: Labile Thought Process & Associations: Tangential Thought Content: Bizarre thinking, Racing thoughts, Preoccupations, Other Hallucination Type: None, Other Delusion Type: Paranoid Suicidal Ideation: No Suicidal Plan: No Suicidal Intention: No Homicidal Ideation: No Homicidal Plan: No Homicidal Intention: No Insight: Poor Judgment: Poor Results Labs Test 09/15/17 09:10 Total Bilirubin 0.2 MG/DL Direct Bilirubin 0.1 MG/DL Indirect Bilirubin 0.1 MG/DL Aspartate Amino Transf (AST/SGOT) 35 U/L Alanine Aminotransferase (ALT/SGPT) 123 U/L Alkaline Phosphatase 57 U/L Total Protein 7.6 GM/DL Albumin 3.7 GM/DL Vitals/IOs Vital Signs Date Time Temp Pulse Resp B/P (MAP) Pulse Ox O2 Delivery O2 Flow Rate FiO2 09/15/17 05:46 97.7 110 18 109/68 (82) 98 09/12/17 02:00 Room Air Assessment & Plan Problem List: (1) Brief psychotic disorder ICD Codes: F23 - Brief psychotic disorder Status: Acute Assessment & Plan Increase Risperdal to 3 mg by mouth twice a day, at [facility] as a precaution Justification for Cont. Inpt. Patient will decompensate in a less restrictive setting Bryan Naranjo DO Sep 15, 2017 15:58
[2017-09-15] MEDS: BENZTROPINE MESYLATE 1 MG TAB PO SCH ×2 (16:00→20:15)
[2017-09-15] MEDS: REMOVE OLD PATCH T-DERMAL SCH (16:54)
[2017-09-15] MEDS: NICOTINE 21 MG/24 HR PATCH T-DERMAL SCH (16:54)
[2017-09-15 17:16] VITALS: BP 139/75; PULSE 117; RESP 17; TEMP 97.6; O2SAT 97
[2017-09-15] MEDS: diphenhydrAMINE HCL 50 MG CAP PO PRN (22:15)
[2017-09-16 05:34] VITALS: BP 119/56; PULSE 82; RESP 16; TEMP 97.9; O2SAT 99
[2017-09-16] MEDS: LORazepam 1 MG TAB PO PRN ×2 (07:34→20:28)
[2017-09-16] MEDS: NICOTINE 21 MG/24 HR PATCH T-DERMAL SCH (07:35)
[2017-09-16] MEDS: risperiDONE 1 MG TAB PO SCH ×2 (07:35→20:27)
[2017-09-16] MEDS: REMOVE OLD PATCH T-DERMAL SCH (07:35)
[2017-09-16] MEDS: BENZTROPINE MESYLATE 1 MG TAB PO SCH ×2 (07:36→20:27)
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
[2017-09-16] MEDS: DIVALPROEX DR 500 MG TABEC PO SCH ×2 (14:15→20:27)
[2017-09-16 16:29] LABS: ALT (GPT) 100 U/L (10-53); ANION GAP 4 MEQ/L (5-15); AST (GOT) 26 U/L (15-37); BLOOD UREA NITROGEN 21 MG/DL (7-18); CHLORIDE 104 MEQ/L (98-107); GLOMERULAR FILTRATION RATE 74 ML/MIN (>89); POTASSIUM 4.7 MEQ/L (3.5-5.1); SODIUM (NA) 139 MEQ/L (136-145)
[2017-09-16 16:31] LABS: ALKALINE PHOSPHATASE 47 U/L (45-117); TOTAL BILIRUBIN ADULT 0.1 MG/DL (0.2-1.0)
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
[2017-09-16 18:00] VITALS: BP 107/70; PULSE 96; RESP 16; TEMP 98; O2SAT 99
[2017-09-16] MEDS: diphenhydrAMINE HCL 50 MG CAP PO PRN (20:34)
[2017-09-17 06:06] VITALS: BP 117/58; PULSE 95; RESP 16; TEMP 97.6; O2SAT 98
[2017-09-17] MEDS: BENZTROPINE MESYLATE 1 MG TAB PO SCH ×2 (08:34→20:47)
[2017-09-17] MEDS: DIVALPROEX DR 500 MG TABEC PO SCH ×2 (08:34→20:47)
[2017-09-17] MEDS: risperiDONE 1 MG TAB PO SCH ×2 (08:34→20:47)
[2017-09-17] MEDS: NICOTINE 21 MG/24 HR PATCH T-DERMAL SCH (08:37)
[2017-09-17] MEDS: REMOVE OLD PATCH T-DERMAL SCH (08:38)
--- NOTE | 2017-09-17 15:20 | HHI.PYPN ---
Subjective Remarks Patient seen for follow-up, chart review. Patient found lying in hospital bed, superficially cooperative today with as patient had sheets over her head during interview. Patient states that she slept well, that her mood is "stable" denies any perceptual disturbances but as noted to be tangential. Patient states that she is getting as well as returning back to live with her boyfriend. She states that she had been living with her boyfriend "on and off" and had been homeless if she was not living with him. Patient reports that she also wishes to have her follow left the trespass warrant against her, recalling having been reading a Bible in front of her father's home at that time. Patient reports that she has had previous inpatient rehabilitation programs, last time being 2 years ago and is interested in reading engaging in the program. Patient states he continues to have difficulty with her concentration due to racing thoughts at this time. Review of Systems Except as stated in HPI: all other systems reviewed are Neg Mental Status Examination Appearance: Appropriate Consciousness: Alert Orientation: Person, Place Motor Activity: Normal gait Speech: Pressured Language: Adequate Fund of Knowledge: Adequate Attention and Concentration: Easily Distracted Memory: Impaired Mood: Other ("stable") Affect: Labile (less so today) Thought Process & Associations: Tangential Thought Content: Bizarre thinking, Racing thoughts Hallucination Type: None, Other Delusion Type: Paranoid Suicidal Ideation: No Suicidal Plan: No Suicidal Intention: No Homicidal Ideation: No Homicidal Plan: No Homicidal Intention: No Insight: Poor Judgment: Poor Results Labs Test 09/16/17 15:21 Blood Urea Nitrogen 21 MG/DL Creatinine 0.93 MG/DL Random Glucose 84 MG/DL Total Protein 7.4 GM/DL Albumin 3.6 GM/DL Calcium Level 9.1 MG/DL Alkaline Phosphatase 47 U/L Aspartate Amino Transf (AST/SGOT) 26 U/L Alanine Aminotransferase (ALT/SGPT) 100 U/L Total Bilirubin 0.1 MG/DL Sodium Level 139 MEQ/L Potassium Level 4.7 MEQ/L Chloride Level 104 MEQ/L Carbon Dioxide Level 31.0 MEQ/L Anion Gap 4 MEQ/L Estimat Glomerular Filtration Rate 74 ML/MIN Vitals/IOs Vital Signs Date Time Temp Pulse Resp B/P (MAP) Pulse Ox O2 Delivery O2 Flow Rate FiO2 09/17/17 06:06 97.6 95 16 117/58 (32) 98 Assessment & Plan Problem List: (1) Brief psychotic disorder ICD Codes: F23 - Brief psychotic disorder Status: Acute Assessment & Plan Patient at this time continues to be noted to have some disorganization but less so today and some tangentiality. We'll continue current treatment for now as patient appears to be responding and expect continued improvement. Patient is on day 2 of Depakote, will request Depakote levels on 09/19/2017. Discharge planning in progress. Justification for Cont. Inpt. At risk for further decompensation if at lower level of care Discharge Planning Patient to return to her residence once psychiatrically stable. Osito Ram MD Sep 17, 2017 15:19
[2017-09-17 15:55] VITALS: BP 104/59; PULSE 80; RESP 18; TEMP 98.4; O2SAT 98
[2017-09-17] MEDS: LORazepam 1 MG TAB PO PRN (17:42)
[2017-09-17 19:51] LABS: ANION GAP 6 MEQ/L (5-15); AST (GOT) 27 U/L (15-37); BLOOD UREA NITROGEN 21 MG/DL (7-18); CHLORIDE 102 MEQ/L (98-107); GLOMERULAR FILTRATION RATE 80 ML/MIN (>89); SODIUM (NA) 137 MEQ/L (136-145)
[2017-09-17 19:53] LABS: ALT (GPT) 82 U/L (10-53)
[2017-09-17 19:54] LABS: ALKALINE PHOSPHATASE 43 U/L (45-117); TOTAL BILIRUBIN ADULT 0.1 MG/DL (0.2-1.0)
[2017-09-17] MEDS: diphenhydrAMINE HCL 50 MG CAP PO PRN (20:47)
[2017-09-18 06:10] VITALS: BP 105/52; PULSE 74; RESP 16; TEMP 97.5; O2SAT 98
[2017-09-18] MEDS: LORazepam 1 MG TAB PO PRN ×2 (06:24→15:46)
[2017-09-18] MEDS: DIVALPROEX DR 500 MG TABEC PO SCH ×2 (07:52→20:43)
[2017-09-18] MEDS: risperiDONE 1 MG TAB PO SCH ×2 (07:53→20:43)
[2017-09-18] MEDS: BENZTROPINE MESYLATE 1 MG TAB PO SCH ×2 (07:53→20:43)
[2017-09-18] MEDS: NICOTINE 21 MG/24 HR PATCH T-DERMAL SCH (07:53)
[2017-09-18] MEDS: REMOVE OLD PATCH T-DERMAL SCH (08:30)
--- NOTE | 2017-09-18 16:50 | HHI.PYPN ---
Subjective Remarks Patient seen for follow-up, chart reviewed. Patient was seen lying on hospital bed, cooperative with interview and tearful at times. Patient states that she slept well last night, continues to have racing thoughts, denies any perceptual disturbances, mood is "happy...but a step before happy" and states that she had some left hip soreness after falling on her left side attempting to do a gymnastic move during one of the group activities. She was noted to be tearful toward the end of interview wanting to go home but was aware that she was having manic symptoms. She recalls the last episode of jovani being two years ago which she was put on lurasidone at that time. Review of Systems Except as stated in HPI: all other systems reviewed are Neg Mental Status Examination Appearance: Appropriate Consciousness: Alert Orientation: Person, Place Motor Activity: Normal gait Speech: Pressured Language: Adequate Fund of Knowledge: Adequate Attention and Concentration: Easily Distracted Memory: Impaired Mood: Other ("one step before happy") Affect: Labile (tearful towards end of interview) Thought Process & Associations: Tangential (less today) Thought Content: Racing thoughts Hallucination Type: None, Other Delusion Type: Paranoid Suicidal Ideation: No Suicidal Plan: No Suicidal Intention: No Homicidal Ideation: No Homicidal Plan: No Homicidal Intention: No Insight: Poor Judgment: Poor Results Labs Test 09/17/17 18:31 Blood Urea Nitrogen 21 MG/DL Creatinine 0.87 MG/DL Random Glucose 114 MG/DL Total Protein 6.7 GM/DL Albumin 3.2 GM/DL Calcium Level 8.7 MG/DL Alkaline Phosphatase 43 U/L Aspartate Amino Transf (AST/SGOT) 27 U/L Alanine Aminotransferase (ALT/SGPT) 82 U/L Total Bilirubin 0.1 MG/DL Direct Bilirubin LESS THAN 0.1 MG/DL Sodium Level 137 MEQ/L Potassium Level 4.0 MEQ/L Chloride Level 102 MEQ/L Carbon Dioxide Level 29.0 MEQ/L Anion Gap 6 MEQ/L Estimat Glomerular Filtration Rate 80 ML/MIN Indirect Bilirubin 0.0 MG/DL Vitals/IOs Vital Signs Date Time Temp Pulse Resp B/P (MAP) Pulse Ox O2 Delivery O2 Flow Rate FiO2 09/18/17 06:10 97.5 74 16 105/52 (69) 98 Assessment & Plan Problem List: (1) Brief psychotic disorder ICD Codes: F23 - Brief psychotic disorder Status: Acute Assessment & Plan Patient noted to be more organized today, less tangential and noted to be less impulsive during groups and activities. Patient appears to be responding to current treatment, will continue current treatment. Will order labs BMP, LFT, and VPA level for the morning. Discharge planning in progress. Patient will present to mental health court tomorrow for petition for involuntary admission. Justification for Cont. Inpt. At risk for further decompensation if at lower level of care. Discharge Planning To return back to her residence with her father once psychiatrically stable. Osito Ram MD Sep 18, 2017 16:50
[2017-09-18 17:00] VITALS: BP 115/71; PULSE 73; RESP 18; TEMP 98.7; O2SAT 99
[2017-09-19 06:00] VITALS: BP 105/66; PULSE 117; RESP 16; TEMP 98; O2SAT 98
[2017-09-19] MEDS: NICOTINE 21 MG/24 HR PATCH T-DERMAL SCH (08:56)
[2017-09-19] MEDS: LORazepam 1 MG TAB PO PRN (08:56)
[2017-09-19] MEDS: DIVALPROEX DR 500 MG TABEC PO SCH ×2 (08:56→20:37)
[2017-09-19] MEDS: risperiDONE 1 MG TAB PO SCH ×2 (08:56→20:37)
[2017-09-19] MEDS: BENZTROPINE MESYLATE 1 MG TAB PO SCH ×2 (09:00→20:37)
[2017-09-19] MEDS: REMOVE OLD PATCH T-DERMAL SCH (09:00)
[2017-09-19 11:29] LABS: BICARBONATE 29.3 MEQ/L (21.0-32.0); POTASSIUM 4.4 MEQ/L (3.5-5.1)
[2017-09-19 11:32] LABS: INDIRECT BILIRUBIN 0.1 MG/DL (0.0-0.8); TOTAL BILIRUBIN ADULT 0.2 MG/DL (0.2-1.0)
--- NOTE | 2017-09-19 12:21 | HHI.PYPN ---
Subjective Remarks Patient seen for follow-up, chart reviewed. Patient was taken to mental health Court for petition for involuntary admission which the grid caster had granted. Patient was notably upset due to having been court mandated to continue treatment in voluntarily. Patient was later seen lying in hospital bed upset and noted to be sarcastic with senior grant writer. Patient was given Ativan when necessary due to feeling upset earlier after court. Patient noted to be calmer but irritable. Patient later apologizes for his irritability and expressed frustration. Review of Systems Except as stated in HPI: all other systems reviewed are Neg Mental Status Examination Appearance: Appropriate Consciousness: Alert Orientation: Person, Place Motor Activity: Normal gait Speech: Pressured Language: Adequate Fund of Knowledge: Adequate Attention and Concentration: Easily Distracted Memory: Impaired Mood: Irritable Affect: Irritable Thought Process & Associations: Tangential (less today) Thought Content: Racing thoughts (less so today) Hallucination Type: None, Other Delusion Type: Paranoid Suicidal Ideation: No Suicidal Plan: No Suicidal Intention: No Homicidal Ideation: No Homicidal Plan: No Homicidal Intention: No Insight: Poor Judgment: Poor Results Labs Test 09/19/17 10:07 Blood Urea Nitrogen 17 MG/DL Creatinine 0.79 MG/DL Random Glucose 91 MG/DL Total Protein 6.6 GM/DL Albumin 3.3 GM/DL Calcium Level 9.0 MG/DL Alkaline Phosphatase 41 U/L Aspartate Amino Transf (AST/SGOT) 26 U/L Alanine Aminotransferase (ALT/SGPT) 69 U/L Total Bilirubin 0.2 MG/DL Direct Bilirubin 0.1 MG/DL Sodium Level 138 MEQ/L Potassium Level 4.4 MEQ/L Chloride Level 103 MEQ/L Carbon Dioxide Level 29.3 MEQ/L Anion Gap 6 MEQ/L Estimat Glomerular Filtration Rate 89 ML/MIN Indirect Bilirubin 0.1 MG/DL Valproic Acid (Depakene) Level 69 MCG/ML Vitals/IOs Vital Signs Date Time Temp Pulse Resp B/P (MAP) Pulse Ox O2 Delivery O2 Flow Rate FiO2 09/19/17 06:00 98.0 117 16 105/66 (79) 98 Assessment & Plan Problem List: (1) Brief psychotic disorder ICD Codes: F23 - Brief psychotic disorder Status: Acute Assessment & Plan Patient appears to be improving with current regimen noted to be less disorganized less tangentiality other continues to require further stabilization. Patient was court mandated to remain on the inpatient unit for further stabilization voluntarily. Continue current treatment for now discharge planning in progress Justification for Cont. Inpt. At risk for further decompensation if at lower level of care Discharge Planning Patient to return back to her father's residence unclear at this time and continues to be to explored. Osito Ram MD Sep 19, 2017 12:21
[2017-09-19 16:27] VITALS: BP 121/64; PULSE 119; RESP 18; TEMP 98.6; O2SAT 99
[2017-09-20 05:28] VITALS: BP 107/59; PULSE 75; RESP 16; TEMP 97.8; O2SAT 98
[2017-09-20] MEDS: REMOVE OLD PATCH T-DERMAL SCH (09:00)
[2017-09-20] MEDS: DIVALPROEX DR 500 MG TABEC PO SCH ×2 (09:10→21:00)
[2017-09-20] MEDS: risperiDONE 1 MG TAB PO SCH ×2 (09:10→21:00)
[2017-09-20] MEDS: BENZTROPINE MESYLATE 1 MG TAB PO SCH ×2 (09:10→21:00)
[2017-09-20] MEDS: NICOTINE 21 MG/24 HR PATCH T-DERMAL SCH (09:11)
[2017-09-20] MEDS: LORazepam 1 MG TAB PO PRN ×2 (09:24→21:33)
--- NOTE | 2017-09-20 13:54 | HHI.PYPN ---
Subjective Remarks Patient seen for follow-up, chart reviewed. Patient found participating in group outside, cooperative interview. Patient states that she was having some mild hip pain which she was not aware could receive analgesics when necessary. Patient states that she is sleeping okay eating drinking well, reports her mood being "all right" denies any perceptual disturbances. Patient noted to have less tangentiality this disorganization. Patient has poor insight into her substance use but was agreeable to outpatient rehabilitation. Patient states he plans on returning back to live with her father and has not with her boyfriend. Patient states that her boyfriend does use a lot of marijuana and that she also admits to having using marijuana heavily. Discussion on importance of abstinence from substance use was reviewed patient which he acknowledged. Review of Systems Except as stated in HPI: all other systems reviewed are Neg Mental Status Examination Appearance: Appropriate Consciousness: Alert Orientation: Person, Place Motor Activity: Normal gait Speech: Pressured Language: Adequate Fund of Knowledge: Adequate Attention and Concentration: Easily Distracted Memory: Impaired Mood: Anxious Affect: Anxious Thought Process & Associations: Tangential (decreasing) Thought Content: Racing thoughts (decreasing) Hallucination Type: None, Other Delusion Type: Paranoid (decreasing) Suicidal Ideation: No Suicidal Plan: No Suicidal Intention: No Homicidal Ideation: No Homicidal Plan: No Homicidal Intention: No Insight: Poor Judgment: Poor Results Vitals/IOs Vital Signs Date Time Temp Pulse Resp B/P (MAP) Pulse Ox O2 Delivery O2 Flow Rate FiO2 09/20/17 05:28 97.8 75 16 107/59 (75) 98 Assessment & Plan Problem List: (1) Brief psychotic disorder ICD Codes: F23 - Brief psychotic disorder Status: Acute Assessment & Plan Patient at this time and noted to be less disorganized and less tangential and more engaging in interview today. Patient continues to have some loosening associations. Motivational interviewing was done for substance use. Continue current treatment. Discharge planning in progress Justification for Cont. Inpt. At risk for further decompensation if at lower level of care Discharge Planning Patient may possibly return back to father's home or be discharged to boyfriend' s home. Osito Ram MD Sep 20, 2017 13:54
[2017-09-20 17:30] VITALS: BP 121/70; PULSE 100; RESP 17; TEMP 97.7; O2SAT 100
[2017-09-20] MEDS: diphenhydrAMINE HCL 25 MG CAP PO PRN (21:33)
[2017-09-21 05:34] VITALS: BP 117/53; PULSE 80; RESP 15; TEMP 98.2; O2SAT 95
[2017-09-21] MEDS: NICOTINE 21 MG/24 HR PATCH T-DERMAL SCH (08:56)
[2017-09-21] MEDS: DIVALPROEX DR 500 MG TABEC PO SCH ×2 (08:56→21:07)
[2017-09-21] MEDS: REMOVE OLD PATCH T-DERMAL SCH (08:57)
[2017-09-21] MEDS: risperiDONE 1 MG TAB PO SCH ×2 (08:57→21:10)
[2017-09-21] MEDS: BENZTROPINE MESYLATE 1 MG TAB PO SCH ×2 (08:57→21:08)
[2017-09-21] MEDS: LORazepam 1 MG TAB PO PRN ×2 (09:13→18:26)
--- NOTE | 2017-09-21 14:48 | HHI.PYPN ---
Subjective Remarks Pt seen and discussed with staff. Chart reviewed. No behavioral problems or bizarre behaviors. She been pleasant and cooperative. She has been participating in [facility] activites. No SI/HI Mental Status Examination Appearance: Appropriate Consciousness: Alert Orientation: Person, Place Motor Activity: Normal gait Speech: Pressured Language: Adequate Fund of Knowledge: Adequate Attention and Concentration: Easily Distracted Memory: Unremarkable Mood: Appropriate Affect: Appropriate, Anxious Thought Process & Associations: Linear Thought Content: Appropriate Hallucination Type: None, Other Delusion Type: Paranoid (decreasing) Suicidal Ideation: No Suicidal Plan: No Suicidal Intention: No Homicidal Ideation: No Homicidal Plan: No Homicidal Intention: No Insight: Poor Judgment: Poor Results Vitals/IOs Vital Signs Date Time Temp Pulse Resp B/P (MAP) Pulse Ox O2 Delivery O2 Flow Rate FiO2 09/21/17 05:34 98.2 80 15 117/53 (74) 95 Assessment & Plan Problem List: (1) Brief psychotic disorder ICD Codes: F23 - Brief psychotic disorder Status: Acute Assessment & Plan Pt improving. Continue current tx plan.Estimated LOS: days Justification for Cont. Inpt. risk of decompensation Katya Burroughs MD Sep 21, 2017 14:48
[2017-09-21 18:17] VITALS: BP 121/57; PULSE 89; RESP 18; TEMP 98.2; O2SAT 100
[2017-09-21] MEDS: diphenhydrAMINE HCL 50 MG CAP PO PRN (21:08)
[2017-09-22 06:25] VITALS: BP 96/55; PULSE 88; RESP 16; TEMP 97.9; O2SAT 98
[2017-09-22] MEDS: DIVALPROEX DR 500 MG TABEC PO SCH ×2 (08:36→20:28)
[2017-09-22] MEDS: BENZTROPINE MESYLATE 1 MG TAB PO SCH ×2 (08:39→20:29)
[2017-09-22] MEDS: risperiDONE 1 MG TAB PO SCH ×2 (08:39→20:29)
[2017-09-22] MEDS: NICOTINE 21 MG/24 HR PATCH T-DERMAL SCH (08:40)
[2017-09-22] MEDS: REMOVE OLD PATCH T-DERMAL SCH (09:00)
--- NOTE | 2017-09-22 15:59 | HHI.PYPN ---
Subjective Remarks Pt seen and discussed with staff. She has been compliant with medications and denies SI/HI. Inisght into substance abuse is poor. Mental Status Examination Appearance: Appropriate Consciousness: Alert Orientation: Person, Place Motor Activity: Normal gait Speech: Pressured Language: Adequate Fund of Knowledge: Adequate Attention and Concentration: Easily Distracted Memory: Unremarkable Mood: Appropriate Affect: Appropriate, Anxious Thought Process & Associations: Linear Thought Content: Appropriate Hallucination Type: None, Other Delusion Type: Paranoid (decreasing) Suicidal Ideation: No Suicidal Plan: No Suicidal Intention: No Homicidal Ideation: No Homicidal Plan: No Homicidal Intention: No Insight: Poor Judgment: Poor Results Vitals/IOs Vital Signs Date Time Temp Pulse Resp B/P (MAP) Pulse Ox O2 Delivery O2 Flow Rate FiO2 09/22/17 06:25 97.9 88 16 96/55 (69) 98 Assessment & Plan Problem List: (1) Brief psychotic disorder ICD Codes: F23 - Brief psychotic disorder Status: Acute Assessment & Plan Continue current tx plan. Estimated LOS: days Justification for Cont. Inpt. risk of decompensation Katya Burroughs MD Sep 22, 2017 15:59
[2017-09-22 17:00] VITALS: BP 103/73; PULSE 120; RESP 18; TEMP 97.6; O2SAT 98
[2017-09-22] MEDS: LORazepam 1 MG TAB PO PRN (18:43)
[2017-09-22] MEDS: diphenhydrAMINE HCL 50 MG CAP PO PRN (20:29)
[2017-09-23 05:40] VITALS: BP 105/57; PULSE 83; RESP 16; TEMP 98.2; O2SAT 98
[2017-09-23] MEDS: DIVALPROEX DR 500 MG TABEC PO SCH (08:36)
[2017-09-23] MEDS: risperiDONE 1 MG TAB PO SCH (08:36)
[2017-09-23] MEDS: BENZTROPINE MESYLATE 1 MG TAB PO SCH (08:36)
[2017-09-23] MEDS: REMOVE OLD PATCH T-DERMAL SCH (08:36)
[2017-09-23] MEDS: NICOTINE 21 MG/24 HR PATCH T-DERMAL SCH (08:36)
[2017-09-23] MEDS ORDERED: Benztropine PO (10:55)
[2017-09-23] MEDS ORDERED: RISP3TAB2 PO (10:55)
[2017-09-23] MEDS ORDERED: DIVA500T PO (10:55)
--- NOTE | 2017-09-23 10:56 | HHI.DS ---
Psychiatry Discharge Summary Inpatient Psychiatric care?: Yes Advance Directive: No Reason Not Provided: Due to Patient Condition Mental Health AdvanceDirective: No Health Care Proxy: No Admission Admission Date Sep 12, 2017 at 10:37 Admission Diagnosis: (1) Brief psychotic disorder ICD Code: F23 - Brief psychotic disorder (2) Polysubstance abuse ICD Code: F19.10 - Other psychoactive substance abuse, uncomplicated Brief History This is a 26-year-old female brought in under a [employer] act for erratic behavior and reports of heroine use. Apparently the patient was seen by law enforcement at a local convenience store. The patient had been walking around the convenience store behaving in an irrational fashion. She was yelling, cursing and shouting nonsensical remarks. The officer approached the patient with the patient would not cooperate and continued to demonstrate emotional lability. The patient told the officer she had used heroine. She also advised the officer that she had been on several antipsychotic medicines, including Risperdal, Haldol and Latuda.Upon interview, the patient continues to demonstrate psychotic thinking, loose associations, nonsensical remarks, inappropriate cursing, inappropriately yelling, impulsive and intrusive behavior , etc. She is now stating she smoked flocca. She is felt to be psychotic and an unreliable poor historian. However, after 24+ hours of observation, the patient has not cleared and she may in fact have an underlying mental illness such as bipolar disorder, schizoaffective disorder, etc. Patient has no money, no place to live, no cognitive ability to care for herself. She is unable to provide accurate information regarding assistance from family or friends. She has self reportedly been "trespassed" from her father's house. She made the remark "whatever it takes to earn your business, Deondre Medeiros Parker." She also stated she works at [employer] [employer] Patient was seen today for evaluation of second opinion. Patient is acutely psychotic, very disorganized, demanding, disruptive and restless. She is disheveled with a flight of ideas and irritable affect. She is sexually preoccupied and very paranoid, saying she fears for her life. Focused on discharge, stating that the psychiatrist who is treating her doesn't know how to treat real patients. As per nurses, very agitated and difficult to redirect. Tobacco Use In Past 30 Days: 5 or More Cigarettes/Day Alcohol Use: 2-3 Times Per Week Hospital Course Patient is a 26 y/o woman, single, employed, living with her father, denies past psychiatric history but as per chart bipolar disorder, polysubstance use disorder, who was brought in by police after being noted being agitated and unable to care for herself. Patient was admitted to the inpatient psychiatry unit where he was started on aripiprazole 5mg PO daily but was later noted to be disorganized with manic symptoms and was switched to Risperidone to 3mg PO BID, benztropine 1mg PO BID and added Depakote 500mg PO BID. Patient during hospitalization was noted to have decrease in manic symptoms along with improvement of organization of thought process. Patient with limited insight into substance use but was agreeable to outpatient rehabilitation program. Patient continued to have improvement of mood, denied any suicidal ideation and noted to be more cooperative and pleasant with staff. Upon discharge patient stated feeling motivated to care for himself better, was future oriented, and wanting to engage in outpatient rehabilitation program for substance use. She agrees to continue treatment and attend outpatient follow up appointments for continuity of care. Patient denies SI, HI, AVH or delusions. Supportive psychotherapy provided. Patient advised to return to ED or call 911 in case of emergency. Patient agrees with plan. Results Blood Pressure 105 / 57 Vital Signs Date Time Temp Pulse Resp B/P (MAP) Pulse Ox O2 Delivery O2 Flow Rate FiO2 09/23/17 05:40 98.2 83 16 105/57 (73) 98 Laboratory Results Test 09/13/17 12:10 09/19/17 10:07 Cholesterol Level 164 MG/DL (120-200) HDL Cholesterol 62.9 MG/DL (40.0-60.0) Hemoglobin A1c 5.1 % (4.3-6.0) LDL Cholesterol 48 MG/DL (0-99) Triglycerides Level 267 MG/DL (42-150) Valproic Acid (Depakene) Level 69 MCG/ML (50-100) Summary of Procedures none Pending results at discharge: No Medications # of Antipsychotic meds at D/C: 1 Approp Antipsych med options 1 - Minimum of three failed multiple trials of monotherapy. 2 - Documented plan to taper to monotherapy due to previous use of multiple meds OR cross-taper in progress at D/C. 3 - Documentation of augmentation of Clozapine. 4 - Justification other than those listed in allowable values 1-3, document here : Discharge Discharge Date: Sep 23, 2017 Discharge Diagnosis: (1) Brief psychotic disorder ICD Code: F23 - Brief psychotic disorder Status: Acute (2) Polysubstance abuse ICD Code: F19.10 - Other psychoactive substance abuse, uncomplicated Status: Acute Pt Condition on Discharge: Stable Discharge Disposition: Discharge Home Discharge Instructions Diet Instructions: As Tolerated, No Restrictions Activities you can perform: Regular-No Restrictions Discharge Time > 30 minutes Mental Status Examination Appearance: Appropriate Consciousness: Alert Orientation: Person, Place Motor Activity: Normal gait Speech: Unremarkable Language: Adequate Fund of Knowledge: Adequate Attention and Concentration: Adequate Memory: Unremarkable Mood: Appropriate Affect: Appropriate Thought Process & Associations: Goal directed, Linear Thought Content: Appropriate Hallucination Type: None Delusion Type: None Suicidal Ideation: No Suicidal Plan: No Suicidal Intention: No Homicidal Ideation: No Homicidal Plan: No Homicidal Intention: No Insight: Fair (limited) Judgment: Impulsive Discharge/Advance Care Plan Health Problems: (1) Brief psychotic disorder Goals to promote your health * To prevent worsening of your condition and complications * To maintain your health at the optimal level Directions to meet your goals Take your medications as prescribed Follow your dietary instruction Follow activity as directed Keep your appointments as scheduled Take your immunizations and boosters as scheduled If your symptoms worsen call your PCP, if no PCP go to Urgent Care Center or Emergency Room For 24/06 questions related to your inpatient stay or results of tests pending at discharge, please contact Dr. Osito Ram at Smoking is Dangerous to Your Health. Avoid second hand smoking Osito Ram MD Sep 23, 2017 10:56
== END 2017-09-23 14:47 | disposition home or self-care (01) | DRG 885 ==
LOC: NEPC 01:29 → NEDA 09-12 10:37 → H260 09-12 12:15 → H270 09-14 13:40 → H260 09-19 10:35
PROVIDERS: ADMIT Student in an Organized Health Care Education/Training Program; ATTEND Student in an Organized Health Care Education/Training Program
DX: F23 Brief psychotic disorder (principal); E55.9 Vitamin D deficiency, unspecified; F31.9 Bipolar disorder, unspecified; F11.90 Opioid use, unspecified, uncomplicated; F12.10 Cannabis abuse, uncomplicated; F17.210 Nicotine dependence, cigarettes, uncomplicated
CPT/HCPCS: 80048; 80053; 80061; 80074; 80076; 80164; 80307; 82306; 82607; 83036; 84443; 84703; 85025; 93005; 96360; 96361; 96372; J1630; J2060; J7030; Q0163